=== PATIENT | female | born 1980 | race Caucasian/White ===

== ENCOUNTER 2017-05-09 05:39 | Day surgery (SDC) | payer OTHER ==
[~2017-05-09] VITALS: Ht 165.1 cm; Wt 104.8 kg
[~2017-05-09 05:39] MED LIST: CHANTIX1 MG PO; CYTOTEC200 MCG PO; DIPROSONE 0.05%15 GM TP; HYDROCHLOROTHIA25 MG PO; K-DUR20 MEQ PO; MOTRIN800 MG PO; NORVASC10 MG PO; PRILOSEC10 MG PO; PROBIOTIC1 EAC1 PO; XANAX0.5 MG PO
[2017-05-09 06:15] VITALS: BP 137/88
[2017-05-09 14:17] VITALS: BP 111/57
[2017-05-09 20:25] VITALS: BP 106/59
[2017-05-10 00:11] VITALS: BP 114/66
[2017-05-10 03:59] VITALS: BP 110/64
[2017-05-10 06:45] LABS: BASOPHIL (%) 0.2 % (0-1); EOSINOPHIL (%) 0.4 % (0-5); HEMATOCRIT 34.6 % (36.0-46.0); HEMOGLOBIN 11.5 G/DL (11.9-15.5); IMMATURE GRANULOCYTE (%) 0.3 % (0.0-0.7); LYMPHOCYTE (%) 20.6 % (15-42); LYMPHOCYTE COUNT 2.1 K/uL (1.0-2.8); MCH 30.5 PG (29.0-34.0); MCHC 33.2 G/DL (30.0-36.0); MCV 91.8 FL (83-99); MONOCYTE (%) 7.2 % (3-12); MONOCYTE COUNT 0.8 K/uL (0-0.8); NEUTROPHIL (%) 71.3 % (45-76); NEUTROPHIL COUNT 7.4 K/uL (1.8-6.4); PLATELET COUNT 239 K/uL (156-360); RBC DIS.WIDTH-CV 12.9 % (11.8-14.6); RED BLOOD COUNT 3.77 M/uL (3.80-5.20); WHITE BLOOD COUNT 10.4 K/uL (4.1-10.2)
[2017-05-10 07:15] LABS: CHLORIDE 105 MEQ/L (99-109); CREATININE 0.6 MG/DL (0.6-1.3); GFR ESTIMATE (CALCULATED) > 59 mL/min/; GLUCOSE 95 mg/dL (70-99); POTASSIUM 3.8 MEQ/L (3.7-5.4); SODIUM 140 MEQ/L (136-147); UREA NITROGEN (BUN) 8 mg/dL (9-23)
[2017-05-10 07:30] VITALS: BP 109/70
[2017-05-10 12:06] VITALS: BP 108/68
== END 2017-05-10 13:00 | disposition home or self-care (01) ==
LOC: SDC 05:39 → 2SOUTH 11:49 → 2EASTP 11:49 → 2SOUTH 11:49 → ENRESERV 12:05 → 2EASTP 14:15 → SDC 15:22 → 2EASTP 05-10 13:00
PROVIDERS: Obstetrics & Gynecology Gynecology
DX: N92.1 Excessive and frequent menstruation with irregular cycle (principal); D25.0 Submucous leiomyoma of uterus; D25.1 Intramural leiomyoma of uterus; N94.6 Dysmenorrhea, unspecified; L40.9 Psoriasis, unspecified; E66.9 Obesity, unspecified; Z68.38 Body mass index [BMI] 38.0-38.9, adult; Z86.19 Personal history of other infectious and parasitic diseases; F17.200 Nicotine dependence, unspecified, uncomplicated; Z82.49 Family history of ischemic heart disease and other diseases of the circulatory system; Z83.49 Family history of other endocrine, nutritional and metabolic diseases; Z88.1 Allergy status to other antibiotic agents; Z88.2 Allergy status to sulfonamides
CPT/HCPCS: 80048; 84132; 85025; 87086; 87641; 88307; G0378; J0131; J0330; J1100; J1170; J1644; J1650; J1885; J2001; J2250; J2405; J2550; J2710; J2795; J3010; J3370; J3475; J7120; J7643; Q0175; S0020

== ENCOUNTER 2017-06-12 03:20 | Day surgery (SDC) | payer OTHER ==
[~2017-06-12] VITALS: Ht 165.1 cm; Wt 101.3 kg
[2017-06-12 03:48] LABS: HEMATOCRIT 38.4 % (36.0-46.0); HEMOGLOBIN 13.5 G/DL (11.9-15.5); MCH 30.8 PG (29.0-34.0); MCHC 35.2 G/DL (30.0-36.0); MCV 87.5 FL (83-99); PLATELET COUNT 307 K/uL (156-360); RBC DIS.WIDTH-SD 41.8 % (39-53); RED BLOOD COUNT 4.39 M/uL (3.80-5.20); WHITE BLOOD COUNT 10.3 K/uL (4.1-10.2)
[2017-06-12 03:59] LABS: ALBUMIN 4.4 g/dL (3.2-4.8); CHLORIDE 102 mEq/L (99-109); POTASSIUM 3.3 mEq/L (3.7-5.4); SODIUM 136 mEq/L (136-147)
[2017-06-12 04:01] LABS: GLUCOSE 139 mg/dL (70-99); TOTAL PROTEIN 7.7 g/dL (6.4-8.3)
[2017-06-12 04:03] LABS: TOTAL BILIRUBIN 0.3 mg/dL (0.0-1.0)
[2017-06-12 04:05] LABS: ALKALINE PHOSPHATASE 118 IU/L (3-129); CREATININE 0.7 mg/dL (0.6-1.3); GFR ESTIMATE (CALCULATED) > 59 mL/min/
[2017-06-12 04:06] LABS: UREA NITROGEN (BUN) 12 mg/dL (9-23)
[2017-06-12 04:07] LABS: AST (GOT) 43 IU/L (2-34); INTER. NORMALIZED RATIO 0.9
[2017-06-12 04:08] LABS: ALT (GPT) 67 IU/L (3-49)
[2017-06-12 04:10] LABS: PTT 27.4 SEC (25-37)
[2017-06-12 06:46] LABS: BASOPHIL (%) 0.3 % (0-1); EOSINOPHIL (%) 1.5 % (0-5); EOSINOPHIL COUNT 0.2 K/uL (0-0.3); HEMATOCRIT 36.3 % (36.0-46.0); HEMOGLOBIN 12.1 G/DL (11.9-15.5); IMMATURE GRANULOCYTE (%) 0.5 % (0.0-0.7); LYMPHOCYTE (%) 12.8 % (15-42); LYMPHOCYTE COUNT 1.6 K/uL (1.0-2.8); MCH 29.9 PG (29.0-34.0); MCHC 33.3 G/DL (30.0-36.0); MCV 89.6 FL (83-99); MONOCYTE (%) 4.6 % (3-12); MONOCYTE COUNT 0.6 K/uL (0-0.8); NEUTROPHIL (%) 80.3 % (45-76); NEUTROPHIL COUNT 10.2 K/uL (1.8-6.4); RBC DIS.WIDTH-CV 13.2 % (11.8-14.6); RBC DIS.WIDTH-SD 43.4 % (39-53); RED BLOOD COUNT 4.05 M/uL (3.80-5.20); WHITE BLOOD COUNT 12.8 K/uL (4.1-10.2)
[2017-06-12 06:55] LABS: CHLORIDE 108 MEQ/L (99-109); CREATININE 0.5 MG/DL (0.6-1.3); GFR ESTIMATE (CALCULATED) > 59 mL/min/; GLUCOSE 133 mg/dL (70-99); POTASSIUM 3.8 MEQ/L (3.7-5.4); SODIUM 138 MEQ/L (136-147); UREA NITROGEN (BUN) 12 mg/dL (9-23)
[2017-06-12 06:59] LABS: FIBRINOGEN 234 mg/dL (150-450)
[2017-06-12 07:02] LABS: PLAT.SUFFICIENCY ADEQUATE; PLATELET COUNT 205 K/uL (156-360)
[2017-06-12 07:43] VITALS: BP 109/68
[2017-06-12 11:50] VITALS: BP 123/56
== END 2017-06-12 15:11 | disposition home or self-care (01) ==
LOC: EME 03:20 → SDC 04:26 → 2SOUTH 05:10 → ENRESERV 05:42 → 2SOUTH 07:35 → 2EAST 07:37
PROVIDERS: Emergency Medicine; Obstetrics & Gynecology Gynecology
PROC: 0UQG7ZZ Repair Vagina, Via Natural or Artificial Opening (ICD-10-PCS; principal; 2017-06-12)
PROC: 0TJB8ZZ Inspection of Bladder, Via Natural or Artificial Opening Endoscopic (ICD-10-PCS; principal; 2017-06-12)
PROC: 30233N1 Transfusion of Nonautologous Red Blood Cells into Peripheral Vein, Percutaneous Approach (ICD-10-PCS; 2017-06-12)
DX: N99.820 Postprocedural hemorrhage of a genitourinary system organ or structure following a genitourinary system procedure (principal); D62 Acute posthemorrhagic anemia; I10 Essential (primary) hypertension; E66.9 Obesity, unspecified; Z88.1 Allergy status to other antibiotic agents; Z88.2 Allergy status to sulfonamides; F17.200 Nicotine dependence, unspecified, uncomplicated
CPT/HCPCS: 80048 91; 80053; 85025; 85027; 85384; 85610; 85730; 86850; 86900; 86901; 86920; 87086; 99281; 99285; G0378; J0330; J0690; J1170; J1885; J2250; J2550; J3010; J7030; J7120; P9016